=== PATIENT | male | born 1950 | race African-American/Black ===

== ENCOUNTER 2016-09-13 07:50 | Emergency (ER) | payer OTHER ==
--- NOTE | 2016-09-13 08:10 | PDOC ---
History of Present Illness - General History Source: EMS, Family Exam Limitations: Clinical Condition <Aung Jeffries - Last Filed: 09/13/16 11:42> - History of Present Illness Initial Comments: 09/13/16 11:55 The patient is a 65 year old male, with a significant past medical history of small cell lung CA s/p radiation (2007), PE, DVT on lovenox COPD, pacemaker for bradycardia, who presents to the emergency department via ems in cardiac arrest. The patients reports she found him unresponsive, at the foot of his bed - she last saw him around 3am and he was watching TV wit hhis oxygen. At 7am, she went to check on him and saw that he was nonresponsive and his oxygen was off. The patient was discharged last night at 6PM from the [facility] after a 10 day admission fror hypoxia with new masses in his lung and was discharged on oxygen with outpatient follow-up for lung biopsy. As per ems, the patient was in asystole on their arrival and went into PEA/PulslessVtach and had multiple ACLS cycles without ROSC was reported to have a BGM of 147 on the field, and arrived to the ED in PEA with compressions in progress via Alex machine. Pt was also intubated in the field, and with presence of pinkish discharge in the ETT. PCP - Dr. Ma <Ruthei Yoon - Last Filed: 09/13/16 11:57> - General Stated Complaint: CARDIAC ARREST Time Seen by Provider: 09/13/16 08:10 Past History <Aung Jeffries - Last Filed: 09/13/16 11:42> <Ruthie Yoon - Last Filed: 09/13/16 11:57> - Past Medical History Allergies/Adverse Reactions: Allergies Allergy/AdvReac Type Severity Reaction Status Date / Time No Known Allergies Allergy Verified 09/13/16 08:55 Review of Systems - Review of Systems Able to Perform ROS?: No (unresponsive) <Ruthie Yoon - Last Filed: 09/13/16 11:57> *Physical Exam - Vital Signs Last Vital Signs Temp Pulse Resp BP Pulse Ox 0 L 00/00 09/13/16 08:21 09/13/16 08:21 - Physical Exam Comments: 09/13/16 11:55 GENERAL: The patient is nonresponsive, obese HEAD: Normocephalic, atraumatic. EYES: pupils 7mm fixed, nonresponsive to light ENT: ETT in place with frothy pinkish fluid in ETT NECK: L EJ IV in place LUNGS: cta, no spontaneous respirations HEART: no pulses, pm in L chest ABDOMEN: epigasteric bruising noted EXTREMITIES: no edema NEUROLOGICAL: unresponsive PSYCH: unable to assess SKIN: brusing in the mid abdomen, <Ruthie Yoon - Last Filed: 09/13/16 11:57> Medical Decision Making - Medical Decision Making 09/13/16 08:11 65y M presents in cardiac arrest - per EMS, the pt was complaining of SOB last night, was given a neb. Later this morning, approx 7am, the pt was found unresponsive, EMS was called, upon arrival the pt was in asystole, received ACLS , intubated in the field, BGM 147, pt erceived 7 epis, bicarb, amiodarone, had improved to pulsless Vtach shocked-->PEA-->pulseless vtach shocked-->PEA and was in PEA upon arrival 7:47am. The pts pupils were ~7mm fixed, no spontaneous respirations, pt was given 2 cycles of ACLS jonah arrival echo was performed which showed some electrical activity without significant oragnized cardiac activity. Time of was called at 7:55am. Pts was notified at 7:56am (pt in ED currently) per pt [facility]. will call [facility] to see whta the pts medical history and who his PMD is after further discussion with the , she states that she last saw him around 3am with O2 on in no distress and no complaints. Around 7am, she found him with eyes open, at the foot of the bed with his O2 off. He was nonresponsive with eeys open, and she called EMS. 09/13/16 08:24 Discussed with MD Jesu Anders at [facility] Patient with history of SCC (sp radiation 2007), COPD, PE/DVT on lovenox (pe dx in 08/2016), chronic COPD, DM, multiple valve replacements, dual chamber PM for severe bradycardia, was admitted and d/c from the [facility], dc last night - was there for SOB/hypoxia, severe COPD,- found multiple hypermetabolic lesions on his lung/lymph nodes - weren't able to biopsy at [facility], so was d/c home with o2 - with plan for outpatient biopsy at [facility]. Dr. Solange Ma (PMD) [phone], [facility] - [phone] [place] [address]. [phone] - [place] [employer] - notified 8:55am, release # - declined taking the case as the PMD (dr. ma states she will sign the certificate) <Aung Jeffries - Last Filed: 09/13/16 11:42> - Medical Decision Making 09/13/16 11:56 Dr. Anders, an marketing operations intern on [address] ([phone], [phone]. [phone]) at the [facility] who was involved in the care of the patient during his admission, was contacted and the patients case was discussed at 08:24. Dr. Ma, the patient's PCP, was called ([phone]) at 08:52 and a voicemail was left requesting a call back for doctor to doctor consult. Dr. Ma returned the call and the patient's case was discussed at 08:58. Dr. Ma agrees to fill out certificate of and requests to be called at her office number [phone]. <Ruthie Yoon - Last Filed: 09/13/16 11:57> *DC/Admit/Observation/Transfer - Discharge Dispostion Admit: No <Aung Jeffries - Last Filed: 09/13/16 11:42> - Attestations Scribe Attestion: 09/13/16 11:56 Documentation prepared by Ruthie Yoon, acting as medical records auditor for Aung Jeffries MD, MD <Ruthie Yoon - Last Filed: 09/13/16 11:57> Diagnosis at time of Disposition: Cardiac arrest - Discharge Dispostion Disposition: Condition at time of disposition:
[2016-09-13 08:29] VITALS: BP 00/00; PULSE 0; BMI 55.1
== END 2016-09-13 11:15 | disposition expired ==
LOC: JER 07:50
DX: I46.9 Cardiac arrest, cause unspecified (principal); J44.9 Chronic obstructive pulmonary disease, unspecified; C34.90 Malignant neoplasm of unspecified part of unspecified bronchus or lung; E11.9 Type 2 diabetes mellitus without complications; Z86.718 Personal history of other venous thrombosis and embolism; Z86.711 Personal history of pulmonary embolism; Z79.01 Long term (current) use of anticoagulants; Z95.0 Presence of cardiac pacemaker; Z99.81 Dependence on supplemental oxygen
CPT/HCPCS: 92950; 99285-25